=== PATIENT | male | born 1995 | race Caucasian/White ===

== ENCOUNTER 2019-05-14 18:34 | Emergency (ER) | payer MEDICAID ==
[2019-05-14] MEDS: HYDROCODONE/APAP (5/325) TAB PO (19:26)
[2019-05-14] MEDS: LIDOCAINE 1% (MPF) 5 ML VIAL INJ (19:27)
[2019-05-14] MEDS: DIPHTH/TET/ACEL PERTUSS (ADULT) 0.5 ML VIAL IM* (19:28)
== END 2019-05-14 21:13 | disposition home or self-care (01) ==
LOC: FTE 18:34
DX: S81.011A Laceration without foreign body, right knee, initial encounter (principal); X58.XXXA Exposure to other specified factors, initial encounter; Y92.9 Unspecified place or not applicable; Z23 Encounter for immunization
CPT/HCPCS: 12002; 73562; 90471; 90715; 99283-25

== ENCOUNTER 2019-05-21 09:30 | Emergency (ER) | payer MEDICAID | END 2019-05-21 10:39 | disposition home or self-care (01) | LOC: FTE 10:39 | DX: Z48.02 Encounter for removal of sutures (principal) | CPT/HCPCS: 99281; Z7502 ==